=== PATIENT | male | born 1995 | race Caucasian/White ===

== ENCOUNTER 2018-07-10 06:23 | Day surgery (SDC) | payer OTHER ==
[~2018-07-10 06:23] MED LIST: HUMALOG100 UNIT/1 SUBCUTANEO; HUMULIN N100 UNIT/2 SUBCUTANEO
== END 2018-07-10 19:00 | disposition home or self-care (01) ==
LOC: CIR.AMB 06:23
DX: S52.592A Other fractures of lower end of left radius, initial encounter for closed fracture (principal)
CPT/HCPCS: 25609; 25118; 25280; C1776